=== PATIENT | female | born 1975 | race Caucasian/White ===

== ENCOUNTER 2019-06-03 14:54 | Emergency (ER) | payer MEDICAID ==
[~2019-06-03] VITALS: Ht 162.6 cm; Wt 89.9 kg
[2019-06-03 14:56] VITALS: BP 138/77
--- NOTE | 2019-06-03 15:12 | NUR ---
44 Y/O F C/C BILATERAL LOWER EXTREMITIES EDEDMA X5 DAYS. PER PT UNKNOWN CAUSE, PAIN 10/12, PRESSURE SENSATION. PT NOT TAKEN ANY MEDICATION AT HOME. PT WITH NO DISTRESS. A/OX4. NKA. HX THYROID DISEASE. RX SYNTHROID. NO N/V/D. SIDE RAIL X1.
--- NOTE | 2019-06-03 15:13 | NUR ---
ERMD AT BEDSIDE
--- NOTE | 2019-06-03 15:14 | NUR ---
neurophysiological technician at bedside.
[2019-06-03 16:24] LABS: BASOPHILS % (AUTO) 0.6 % (0.0-2.0); EOSINOPHILS # (AUTO) 0.2 K/uL (0-0.4); EOSINOPHILS % (AUTO) 2.7 % (0.0-4.0); HEMATOCRIT 38.6 % (36-48); HEMOGLOBIN 13.3 g/dL (12.0-16.0); LYMPHOCYTES # (AUTO) 1.6 K/uL (2.5-16.5); LYMPHOCYTES % (AUTO) 20.1 % (20.5-51.1); MEAN CORPUSCULAR HEMOGLOBIN 29 pg (27-31); MEAN CORPUSCULAR HGB CONC 35 g/dL (33-37); MEAN CORPUSCULAR VOLUME 84.6 fL (80-94); MONOCYTES # (AUTO) 0.5 K/uL (0.8-1.0); MONOCYTES % (AUTO) 6.4 % (1.7-9.3); NEUTROPHILS # (AUTO) 5.5 K/uL (1.8-7.7); NEUTROPHILS % (AUTO) 70.2 % (42.2-75.2); PLATELET COUNT (AUTO) 195 K/uL (140-450); RED BLOOD CELL COUNT(AUTO) 4.56 MIL/uL (4.20-5.40); RED CELL DISTRIBUTION WIDTH 15.5 % (11.6-13.7); WHITE BLOOD COUNT (AUTO) 7.8 K/uL (4.8-10.8)
[2019-06-03 16:34] LABS: APPEARANCE,URINE CLEAR (CLEAR); BILIRUBIN,URINE NEGATIVE (NEGATIVE); BLOOD, URINE 2+ (NEGATIVE); COLOR,URINE YELLOW (YELLOW); LEUKOCYTE ESTERASE ,URINE NEGATIVE (NEGATIVE); NITRITE, URINE NEGATIVE (NEGATIVE); PH,URINE 5.5 (5.0-9.0); UGLUCOSE NEGATIVE (NEGATIVE)
[2019-06-03 16:47] LABS: PROTHROMBIN TIME 9.6 secs (10.8-13.4)
[2019-06-03 16:51] LABS: ANION GAP 11.5 (8-16); CARBON DIOXIDE 30.1 mmol/L (21-32); POTASSIUM 3.6 mmol/L (3.5-5.1); TOTAL BILIRUBIN 0.4 mg/dL (0.0-1.0)
[2019-06-03 16:56] LABS: WBC,URINE 0-5 /HPF (0-5)
--- NOTE | 2019-06-03 17:00 | NUR ---
PT RESTING IN BED, SIDE RAIL X1
[2019-06-03 17:30] LABS: FREE T4 (FREE THYROXINE) 0.59 ng/dL (0.76-1.46); THYROID STIMULATING HORMONE 115.63 uIU/mL (0.34-3.74)
[2019-06-03 17:56] VITALS: BP 113/60
--- NOTE | 2019-06-03 17:57 | NUR ---
Patient discharged with v/s stable. Written and verbal after care instructions given and explained. Patient alert, oriented and verbalized understanding of instructions. Ambulatory with to car. All questions addressed prior to discharge. ID band removed. Patient advised to follow up with PMD. Rx of synthroid given. Patient educated on indication of medication including possible reaction and side effects. Opportunity to ask questions provided and answered.
== END 2019-06-03 17:57 | disposition home or self-care (01) ==
LOC: MED 14:54
DX: E03.9 Hypothyroidism, unspecified (principal); Z88.1 Allergy status to other antibiotic agents; Z88.5 Allergy status to narcotic agent
CPT/HCPCS: 36415; 71045; 80053; 81001; 82550; 82553; 83605; 83880; 84439; 84443; 84484; 85025; 85610; 85730; 87040; 93005; 99285; Q0092